=== PATIENT | male | born 1985 | race Hispanic/Latino ===

== ENCOUNTER 2024-06-08 00:31 | Emergency (ER) | payer SELFPAY ==
[2024-06-08 00:42] VITALS: BP 155/105
--- NOTE | 2024-06-08 02:15 | ED.GENMED ---
History of Present Illness
General
Chief Complaint: Facial Problem
Source: patient and family
Exam Limitations: none
Time Seen by Provider: 06/08/24 02:00
Nursing documentation reviewed up to this point in time: agreed with
History of Present Illness
History of Present Illness:
Pleasant 38-year-old male who presents with left upper molar pain that has been present for the last 2 days. He states that the pain increased over the last few hours. He states that he has left sided facial pain around the tooth. Denies any
breathing or swallowing difficulties. Reports no fever, chills, nausea or vomiting. Denies any foul taste in his mouth. Patient states that he does not have a dentist to follow-up with. Reports no other complaints.
Past History
Past History
ED Past Medical History: None
ED Past Surgical History: None
Social History
Tobacco: Non-smoker
Alcohol: None
Drug: None
Personal:
Living: with family
Employment: Employed
Review of Systems
Review of Systems
Allergies reviewed?: Yes
All Other Systems: ROS reviewed and negative except as documented in HPI and ROS
Constitutional: Denies fever or fatigue
EENT: Reports mouth pain; Denies sore throat or runny nose
Respiratory: Reports no symptoms
Cardiac: Reports no symptoms
ABD/GI: Reports no symptoms
: Reports no symptoms
Musculoskeletal: Reports no symptoms
Skin: Reports no symptoms
Neurological: Reports no symptoms
Endocrine: Reports no symptoms
Hematologic/Lymphatic: Reports no symptoms
Psychiatric: Reports no symptoms
Phy Exam
General Physical Exam
General Presentation: well appearing and mild distress
General age: appears stated age
General Skin: warm and dry
General Habitus: normal
ENT Exam
ENT Exam: EOMI, TM's normal, pharynx normal (Uvula is midline. There is no evidence of buccal swelling. Tongue has normal range of motion without evidence of the Alec's angina), neck supple, normocephalic, swallowing well and other (No tonsillar
exudate)
Eye Exam
Eye Exam: PERRL, EOMI and conjunctiva normal
Cardiovascular Exam
Cardiovascular Exam: regular rate/rhythm, no edema and no JVD
Pulmonary Exam
Pulmonary Exam: lungs clear and no respiratory distress
Musculoskeletal Exam
Musculoskeletal Exam: full ROM and no edema
Skin Exam
Skin Exam: normal color and warm/dry
Psychiatric Exam
Psychiatric Exam: normal mood/affect
Course
Vital Signs
Initial and Last Documented VS:
Initial Vital Signs
Temp Pulse Resp BP Pulse Ox
99.3 F 73 16 155/105 97
06/08/24 00:42 06/08/24 00:42 06/08/24 00:42 06/08/24 00:42 06/08/24 00:42
Last Documented Vital Signs
Temp Pulse Resp BP Pulse Ox
99.3 F 73 16 155/105 97
06/08/24 00:42 06/08/24 00:42 06/08/24 00:42 06/08/24 00:42 06/08/24 00:42
MDM/Problems Addressed
Differential Diagnosis Includes:
Dentalgia from a likely dental cavity. Sinusitis
Chronic conditions affecting care:
None
*Pulse Oximetry
Patient hypoxic: no
*Critical Care Note
Total Time (30-74mins, 75-104mins- exclusive of procedures): Not Applicable
Patient Management
Social determinants of health affecting care: Poor outpatient follow-up (Does not have a regular dentist)
Update Note
Update Note:
Patient did not wish to have a dental block. He instead will get a dose of Motrin and Augmentin. He will follow-up with one of the dentist from the list I provide.
ED Attending Note
-
Portions of this chart may have been created with voice recognition software.� Occasional wrong word or��sound alike� substitutions may have occurred due to the inherent limitations of voice recognition software.
Discharge Plan
Departure
Patient Disposition: Home (Routine Discharge)
Date of Disposition: 06/08/24
Time of Disposition: 02:19
Patient with high blood pressure during this ER visit?: Yes
Discharge Problem:
Dentalgia
Instructions: Dental pain - ED discharge instructions, BLOOD PRESSURE
Prescriptions:
New
diclofenac sodium 75 mg tablet,delayed release (DR/EC)
75 mg PO BID Qty: 10 0RF
amoxicillin-pot clavulanate 875-125 mg tablet
1 tab PO BID Qty: 20 0RF
Referrals:
[facility] [Outside]
[facility] [Outside]
NONE,* [Family Provider] -
Activity Restrictions/Additional Instructions:
Your prescriptions were sent electronically to the pharmacy that you specified.
It was a pleasure meeting you and taking part in your care. We hope for your continued healing and wellness.
Please read discharge instructions in their entirety. However, they are for general education and may not describe your exact diagnosis at discharge. Information on your ER visit and medical conditions were discussed with you along with appropriate
follow up information...
If indicated, please take your medications as instructed and indicated on discharge paperwork.
Please schedule a follow up appointment as directed. Call to schedule an appointment
Please return to the emergency department with ANY change in, persisting, or worsening of symptoms. If any of your symptoms do not improve, or persist, or become more severe within 6-12 hours, please return to the emergency department for further
care.
Please return to the emergency department if you develop a headache, neck pain/stiffness, fever greater than 100.4F, chest pain, shortness of breath, persistent nausea, vomiting, slurred speech, difficulty walking, numbness/tingling, weakness, signs
of infection or any other symptoms that are worrisome to you.
If you have any questions or concerns please do not hesitate to call the Hospital at or E-mail me directly at [email or web address]
Interventions
Interventions:
*Risk Screen - Suicide Last Done: 06/08/24 00:46
*General Assessment Last Done: 06/08/24 01:43
*Neglect/Abuse Screening Last Done: 06/08/24 01:43
ED- Fall Risk Assessment Last Done: 06/08/24 01:44
*ED COVID-19 Vaccine History Last Done: 06/08/24 01:43
ED- Neurological Assessment Last Done: 06/08/24 01:44
ED-Skin Assessment Last Done: 06/08/24 01:44
Discharge Date and Time
Print Language: TONGAN
[2024-06-08] MEDS: AUGMENTIN 875 MG/125 MG 1 TABLET PO (02:21)
[2024-06-08] MEDS: MOTRIN 600 MG PO (02:21)
== END 2024-06-08 02:29 | disposition home or self-care (01) ==
LOC: EMR 00:31
PROVIDERS: EMERGENCY PHYSICIAN Student in an Organized Health Care Education/Training Program
DX: K08.89 Other specified disorders of teeth and supporting structures (principal); R03.0 Elevated blood-pressure reading, without diagnosis of hypertension
CPT/HCPCS: 99283